=== PATIENT | male | born 1945 | race Caucasian/White ===

== ENCOUNTER 2019-02-05 00:22 | Observation (INO) ==
[2019-02-05] MEDS ORDERED: Ipratropium/Albuterol Neb 3 ML IH ONE (01:36)
[2019-02-05 01:44] LABS: Basophils # 0.1 K/mcL (0.0-0.2); Basophils % 0.6 %; Eosinophils # 0.3 K/mcL (0.0-0.6); Eosinophils % 2.4 %; Hematocrit 47.7 % (37.5-50.1); Hemoglobin 15.1 g/dL (12.9-16.9); Immature Granulocytes % 0.3 % (0-4); Lymphocytes # 2.4 K/mcL (0.6-4.6); Mean Corpuscular HGB Conc 31.7 g/dL (31.6-35.5); Mean Corpuscular Hemoglobin 28.8 pg (28.0-33.3); Mean Corpuscular Volume 90.9 fL (83.0-100.0); Mean Platelet Volume 10.2 fL (9.4-12.4); Monocytes # 0.9 K/mcL (0.0-1.3); Monocytes % 8.3 %; Neutrophils # 6.9 K/mcL (1.6-8.9); Platelet Count 220 K/mcL (140-400); Red Blood Count 5.25 M/mcL (4.19-5.50); Red Cell Distribution Width 14.8 % (11.5-14.5); Segmented Neutrophils % 65.4 %; White Blood Count 10.6 K/mcL (4.3-11.1)
[2019-02-05 01:51] LABS: Prothrombin Time 10.9 Seconds (9.4-12.1)
[2019-02-05 01:54] LABS: Activated Partial Thrombo Time 30.8 Seconds (26.0-36.0)
[2019-02-05 01:57] LABS: ABG Base Excess 5 mEq/L (-2 to 3); ABG HCO3 33 mEq/L (21-27); ABG Oxygen Saturation 93 % (95-98); ABG PCO2 59 mmHg (35-45); ABG PH 7.36 pH Units (7.32-7.45); ABG PO2 73 mmHg (85-104); ABG TCO2 35 mEq/L (20-26)
[2019-02-05 02:06] LABS: BUN/Creatinine Ratio 36 (6-26); Blood Urea Nitrogen 37 mg/dL (8-23); Calcium 8.9 mg/dL (8.6-10.3); Carbon Dioxide 33 mEq/L (23-29); Chloride 106 mEq/L (98-107); Glucose 84 mg/dL (70-105); Osmolality,Calculated 306 (280-300); Potassium 4.6 mEq/L (3.5-5.1); Sodium 144 mEq/L (136-145); eGFR For African Americans > 60 (> 60); eGFR For Non-African Americans > 60 (> 60)
[2019-02-05 02:08] LABS: Alanine Aminotransferase 16 Units/L (7-52); Albumin 3.7 g/dL (3.5-5.7); Albumin/Globulin Ratio 1.5 (1.1-2.2); Alkaline Phosphatase 47 Units/L (34-104); Aspartate Amino Transferase 14 Units/L (13-39); Bilirubin,Direct 0.2 mg/dL (0.0-0.2); Bilirubin,Indirect 0.6 mg/dL (0.0-1.0); Bilirubin,Total 0.8 mg/dL (0.3-1.0); Globulin 2.5 g/dL (2.4-3.5); Total Protein 6.2 g/dL (6.4-8.9)
[2019-02-05 02:10] LABS: Troponin I < 0.03 ng/mL (< 0.04)
[2019-02-05 02:53] LABS: Bilirubin,Urine Small (Negative); Blood,Urine Negative (Negative); Clarity,Urine Cloudy (Clear); Color,Urine Dark Yellow (Yellow); Glucose,Urine (UA) Normal (Normal); Ketones,Urine Negative (Negative); Leukocyte Esterase,Urine Negative (Negative); Nitrite,Urine Negative (Negative); PH,Urine 5.5 pH Units (5.0-8.0); Protein,Urine Negative (Neg-Trace); Urobilinogen,Urine Normal (Normal)
[2019-02-05 02:55] LABS: Bacteria,Urine None Seen per hpf (None-Few); Hyaline Casts,Urine None Seen per lpf (None-Few); Squamous Epithelial Cell,Urine Many per lpf (None-Few); WBC,Urine 0-3 per hpf (0-3)
[2019-02-05] MEDS ORDERED: Naloxone 0.4 MG/ML INJ IVP PRN (05:00)
[2019-02-05] MEDS ORDERED: Isovue-370 500 ML BOTTLE IVP ONE (05:09)
[2019-02-05 06:10] LABS: Basophils # 0.1 K/mcL (0.0-0.2); Basophils % 0.5 %; Eosinophils # 0.2 K/mcL (0.0-0.6); Eosinophils % 2.1 %; Hematocrit 45.6 % (37.5-50.1); Hemoglobin 14.6 g/dL (12.9-16.9); Immature Granulocytes % 0.3 % (0-4); Lymphocytes # 1.9 K/mcL (0.6-4.6); Lymphocytes % 18.6 %; Mean Corpuscular Hemoglobin 28.5 pg (28.0-33.3); Mean Corpuscular Volume 88.9 fL (83.0-100.0); Mean Platelet Volume 10.1 fL (9.4-12.4); Monocytes # 0.7 K/mcL (0.0-1.3); Monocytes % 6.6 %; Neutrophils # 7.5 K/mcL (1.6-8.9); Platelet Count 206 K/mcL (140-400); Red Blood Count 5.13 M/mcL (4.19-5.50); Red Cell Distribution Width 14.6 % (11.5-14.5); Segmented Neutrophils % 71.9 %; White Blood Count 10.4 K/mcL (4.3-11.1)
[2019-02-05 06:18] LABS: Prothrombin Time 11.4 Seconds (9.4-12.1)
[2019-02-05 06:32] LABS: Chol/HDL Ratio 3.5 (0-4.9); Phosphorous 2.7 mg/dL (2.7-4.5)
[2019-02-05 06:33] LABS: BUN/Creatinine Ratio 41 (6-26); Blood Urea Nitrogen 38 mg/dL (8-23); Calcium 8.7 mg/dL (8.6-10.3); Carbon Dioxide 30 mEq/L (23-29); Chloride 105 mEq/L (98-107); Glucose 104 mg/dL (70-105); Osmolality,Calculated 305 (280-300); Potassium 4.1 mEq/L (3.5-5.1); Sodium 143 mEq/L (136-145); eGFR For African Americans > 60 (> 60); eGFR For Non-African Americans > 60 (> 60)
[2019-02-05 08:52] LABS: Estimated Average Glucose 154 mg/dl
[2019-02-05] MEDS ORDERED: Perflutren Lipid Microsphere 1.3 ML in 0.9 % Sodium Chloride 8.7 ML IVP ONE (09:29)
[2019-02-05] MEDS ORDERED: Ipratropium/Albuterol Neb 3 ML ONE (11:06)
[2019-02-05] MEDS: Ipratropium/Albuterol Neb 3 ML IH SCH ×2 (11:08→15:22)
[2019-02-05] MEDS ORDERED: tiZANidine 4 MG TABLET PO PRN (12:46)
[2019-02-05] MEDS ORDERED: Budesonide Neb 0.5 MG/2 ML IH SCH (13:00)
[2019-02-05] MEDS ORDERED: Aspirin Enteric Coated 81 MG Tablet PO SCH (13:00)
[2019-02-05 15:32] VITALS: BP 111/72
[2019-02-05] MEDS ORDERED: FLU Vac QV 19-20 (6Month+)/PF 0.5 ML SYRINGE IM ONE (16:16)
[2019-02-05] MEDS ORDERED: Furosemide 20 MG TABLET PO SCH (17:00)
[2019-02-06] MEDS ORDERED: amLODIPine 5 MG TABLET PO SCH (09:00)
[2019-02-06] MEDS ORDERED: Lisinopril 20 MG TABLET PO SCH (09:00)
== END 2019-02-05 17:19 | disposition home health service (06) ==
LOC: EMEROOARM 00:22 → 2ANU 00:22 → SUATTDRO 04:35 → 2ANU 05:25
PROVIDERS: ADMIT Internal Medicine; ATTEND Family Medicine

== ENCOUNTER 2019-04-05 22:11 | Inpatient (IN) ==
[2019-04-05] MEDS ORDERED: Albuterol 2.5 MG/3 ML NEBULIZER IH STA (23:15)
[2019-04-05] MEDS ORDERED: Ipratropium/Albuterol Neb 3 ML IH STA (23:15)
[2019-04-05] MEDS ORDERED: predniSONE 20 MG TABLET PO STA (23:16)
[2019-04-05 23:20] LABS: Basophils # 0.1 K/mcL (0.0-0.2); Basophils % 0.6 %; Eosinophils # 0.3 K/mcL (0.0-0.6); Eosinophils % 3.2 %; Hematocrit 45.9 % (37.5-50.1); Hemoglobin 14.2 g/dL (12.9-16.9); Immature Granulocytes % 0.1 % (0-4); Lymphocytes # 2.6 K/mcL (0.6-4.6); Lymphocytes % 26.9 %; Mean Corpuscular HGB Conc 30.9 g/dL (31.6-35.5); Mean Corpuscular Volume 93.9 fL (83.0-100.0); Mean Platelet Volume 11.1 fL (9.4-12.4); Monocytes # 1.1 K/mcL (0.0-1.3); Monocytes % 11.6 %; Neutrophils # 5.5 K/mcL (1.6-8.9); Platelet Count 193 K/mcL (140-400); Red Blood Count 4.89 M/mcL (4.19-5.50); Red Cell Distribution Width 14.8 % (11.5-14.5); Segmented Neutrophils % 57.6 %; White Blood Count 9.5 K/mcL (4.3-11.1)
[2019-04-05 23:21] LABS: BUN/Creatinine Ratio 19 (6-26); Blood Urea Nitrogen 24 mg/dL (8-23); Calcium 9.1 mg/dL (8.6-10.3); Carbon Dioxide 31 mEq/L (23-29); Chloride 106 mEq/L (98-107); Glucose 83 mg/dL (70-105); Osmolality,Calculated 301 (280-300); Potassium 4.1 mEq/L (3.5-5.1); Sodium 144 mEq/L (136-145); eGFR For African Americans > 60 (> 60); eGFR For Non-African Americans 56 (> 60)
[2019-04-05 23:22] LABS: Troponin I < 0.03 ng/mL (< 0.04)
[2019-04-05] MEDS ORDERED: Aspirin 81 MG TAB.CHEW PO STA (23:27)
[2019-04-05 23:51] LABS: Thyroid Stimulating Hormone 3.237 mcIU/mL (0.340-5.600)
[2019-04-06 00:10] LABS: Bilirubin,Urine Small (Negative); Blood,Urine Negative (Negative); Clarity,Urine Cloudy (Clear); Color,Urine Dark Yellow (Yellow); Glucose,Urine (UA) Normal (Normal); Ketones,Urine Negative (Negative); Leukocyte Esterase,Urine Negative (Negative); Nitrite,Urine Negative (Negative); PH,Urine 5.5 pH Units (5.0-8.0); Protein,Urine 30 mg/dL (Neg-Trace); Specific Gravity,Urine 1.027 (1.010-1.025); Urobilinogen,Urine Normal (Normal)
[2019-04-06 00:19] LABS: Bacteria,Urine None Seen per hpf (None-Few); RBC,Urine 0-3 per hpf (0-3); Squamous Epithelial Cell,Urine Many per lpf (None-Few)
[2019-04-06 00:36] LABS: Hyaline Casts,Urine Few per lpf (None-Few); Mucus,Urine Few per lpf (Few)
[2019-04-06] MEDS ORDERED: cefTRIAXone 1,000 MG in 0.9 % Sodium Chloride Mini Bag 100 ML IVPB ONE (00:39)
[2019-04-06] MEDS ORDERED: Azithromycin 500 MG in 0.9 % Sodium Chloride 250 ML IVPB ONE (00:39)
[2019-04-06] MEDS ORDERED: Acetaminophen 325 MG TABLET PO PRN (01:40)
[2019-04-06] MEDS ORDERED: Naloxone 0.4 MG/ML INJ IVP PRN (01:40)
[2019-04-06] MEDS ORDERED: Ondansetron 4 MG/2 ML VIAL IVP PRN (01:40)
[2019-04-06] MEDS ORDERED: Ipratropium/Albuterol Neb 3 ML IH PRN (01:42)
[2019-04-06] MEDS ORDERED: Furosemide 40 MG/4 ML VIAL IVP ONE (03:51)
[2019-04-06] MEDS: Budesonide Neb 0.5 MG/2 ML IH SCH ×3 (03:57→19:46)
[2019-04-06] MEDS ORDERED: levoFLOXacin 500 MG/100 ML 500 MG/100 ML BAG IVPB SCH (04:00)
[2019-04-06 05:49] LABS: Basophils # 0.1 K/mcL (0.0-0.2); Basophils % 0.5 %; Eosinophils # 0.2 K/mcL (0.0-0.6); Eosinophils % 2.2 %; Hematocrit 42.3 % (37.5-50.1); Hemoglobin 13.1 g/dL (12.9-16.9); Immature Granulocytes % 0.2 % (0-4); Lymphocytes # 2.4 K/mcL (0.6-4.6); Mean Corpuscular Hemoglobin 28.8 pg (28.0-33.3); Mean Platelet Volume 10.9 fL (9.4-12.4); Monocytes % 9.9 %; Neutrophils # 6.7 K/mcL (1.6-8.9); Platelet Count 175 K/mcL (140-400); Red Blood Count 4.55 M/mcL (4.19-5.50); Red Cell Distribution Width 14.8 % (11.5-14.5); Segmented Neutrophils % 64.2 %; White Blood Count 10.4 K/mcL (4.3-11.1)
[2019-04-06 06:05] LABS: Adenovirus Not Detected (Not Detect); Bordetella Pertussis Not Detected (Not Detect); Chlamydophila pneumoniae Not Detected (Not Detect); Coronavirus 229E Not Detected (Not Detect); Coronavirus HKU1 Not Detected (Not Detect); Coronavirus NL63 Not Detected (Not Detect); Coronavirus OC43 Not Detected (Not Detect); Human Metapneumovirus Not Detected (Not Detect); Human Rhinovirus/Enterovirus Not Detected (Not Detect); Influenza A Subtype 2009 H1 Not Detected (Not Detect); Influenza B Not Detected (Not Detect); Mycoplasma pneumoniae Not Detected (Not Detect); Parainfluenza Virus 1 Not Detected (Not Detect); Parainfluenza Virus 2 Not Detected (Not Detect); Parainfluenza Virus 3 Not Detected (Not Detect); Parainfluenza Virus 4 Not Detected (Not Detect); Respiratory Syncytial Virus Not Detected (Not Detect)
[2019-04-06 06:06] LABS: BUN/Creatinine Ratio 20 (6-26); Blood Urea Nitrogen 24 mg/dL (8-23); Calcium 8.4 mg/dL (8.6-10.3); Carbon Dioxide 31 mEq/L (23-29); Chloride 105 mEq/L (98-107); Glucose 119 mg/dL (70-105); Osmolality,Calculated 305 (280-300); Potassium 3.6 mEq/L (3.5-5.1); Sodium 145 mEq/L (136-145); eGFR For African Americans > 60 (> 60); eGFR For Non-African Americans > 60 (> 60)
[2019-04-06] MEDS: *HR* Heparin 5,000 UNIT/ML VIAL SQ SCH ×4 (06:18→20:55)
[2019-04-06] MEDS: Ipratropium/Albuterol Neb 3 ML IH SCH ×5 (08:17→23:32)
[2019-04-06] MEDS: Aspirin Enteric Coated 81 MG Tablet PO SCH (08:30)
[2019-04-06] MEDS: Lisinopril 20 MG TABLET PO SCH (08:31)
[2019-04-06] MEDS: amLODIPine 5 MG TABLET PO SCH (08:31)
[2019-04-06] MEDS: Nicotine 14 MG PATCH.TD24 TD SCH (08:31)
[2019-04-06] MEDS: Furosemide 20 MG TABLET PO SCH (08:31)
[2019-04-06] MEDS: *HR* LORazepam 2 MG/ML VIAL IVP PRN (11:39)
[2019-04-06] MEDS: dexAMETHasone 4 MG TABLET PO SCH (16:20)
[2019-04-06] MEDS: QUEtiapine Fumarate 25 MG TABLET PO SCH ×2 (20:36→22:07)
[2019-04-06] MEDS ORDERED: QUEtiapine Fumarate 25 MG TABLET PO SCH (21:00)
[2019-04-07] MEDS ORDERED: Haloperidol Lactate 5 MG/ML VIAL IVP ONE (00:44)
[2019-04-07] MEDS: Ipratropium/Albuterol Neb 3 ML IH SCH ×7 (01:14→22:52)
[2019-04-07 05:30] LABS: Basophils % 0.2 %; Hematocrit 47.2 % (37.5-50.1); Hemoglobin 14.7 g/dL (12.9-16.9); Immature Granulocytes % 0.2 % (0-4); Lymphocytes # 1.2 K/mcL (0.6-4.6); Mean Corpuscular HGB Conc 31.1 g/dL (31.6-35.5); Mean Corpuscular Volume 93.1 fL (83.0-100.0); Mean Platelet Volume 10.9 fL (9.4-12.4); Monocytes # 0.8 K/mcL (0.0-1.3); Monocytes % 8.1 %; Neutrophils # 7.7 K/mcL (1.6-8.9); Platelet Count 206 K/mcL (140-400); Red Blood Count 5.07 M/mcL (4.19-5.50); Red Cell Distribution Width 14.8 % (11.5-14.5); Segmented Neutrophils % 79.5 %; White Blood Count 9.7 K/mcL (4.3-11.1)
[2019-04-07 05:52] LABS: BUN/Creatinine Ratio 19 (6-26); Blood Urea Nitrogen 25 mg/dL (8-23); Calcium 9.5 mg/dL (8.6-10.3); Carbon Dioxide 28 mEq/L (23-29); Chloride 103 mEq/L (98-107); Glucose 120 mg/dL (70-105); Magnesium 2.2 mg/dL (1.6-2.6); Osmolality,Calculated 308 (280-300); Potassium 4.3 mEq/L (3.5-5.1); Sodium 146 mEq/L (136-145); eGFR For African Americans > 60 (> 60); eGFR For Non-African Americans 54 (> 60)
[2019-04-07] MEDS: *HR* Heparin 5,000 UNIT/ML VIAL SQ SCH ×3 (05:54→20:57)
[2019-04-07] MEDS: dexAMETHasone 4 MG TABLET PO SCH ×2 (07:25→16:48)
[2019-04-07] MEDS: Aspirin Enteric Coated 81 MG Tablet PO SCH (07:25)
[2019-04-07] MEDS: Furosemide 20 MG TABLET PO SCH (07:25)
[2019-04-07] MEDS: levoFLOXacin 500 MG TABLET PO SCH (07:25)
[2019-04-07] MEDS: amLODIPine 5 MG TABLET PO SCH (07:25)
[2019-04-07] MEDS: *HR* LORazepam 2 MG/ML VIAL IVP PRN (07:25)
[2019-04-07] MEDS: Lisinopril 20 MG TABLET PO SCH (07:26)
[2019-04-07] MEDS: Nicotine 14 MG PATCH.TD24 TD SCH (07:26)
[2019-04-07] MEDS: Budesonide Neb 0.5 MG/2 ML IH SCH ×2 (07:27→19:49)
[2019-04-07 08:05] LABS: ABG Base Excess 4 mEq/L (-2 to 3); ABG HCO3 33 mEq/L (21-27); ABG Oxygen Saturation 90 % (95-98); ABG PCO2 65 mmHg (35-45); ABG PH 7.31 pH Units (7.32-7.45); ABG PO2 67 mmHg (85-104); ABG TCO2 35 mEq/L (20-26)
[2019-04-07] MEDS ORDERED: QUEtiapine Fumarate 25 MG TABLET PO SCH (08:38)
[2019-04-07] MEDS ORDERED: Ziprasidone 10 MG in Water for inj. (sterile) 0.5 ML IM ONE (08:59)
[2019-04-07] MEDS: QUEtiapine Fumarate 25 MG TABLET PO SCH (20:57)
[2019-04-07] MEDS ORDERED: *HR* LORazepam 2 MG/ML VIAL IVP ONE (22:17)
[2019-04-08 04:00] LABS: Basophils % 0.1 %; Hematocrit 44.3 % (37.5-50.1); Hemoglobin 13.9 g/dL (12.9-16.9); Immature Granulocytes % 0.2 % (0-4); Mean Corpuscular HGB Conc 31.4 g/dL (31.6-35.5); Mean Corpuscular Hemoglobin 28.4 pg (28.0-33.3); Mean Corpuscular Volume 90.4 fL (83.0-100.0); Mean Platelet Volume 10.9 fL (9.4-12.4); Monocytes # 0.7 K/mcL (0.0-1.3); Monocytes % 5.6 %; Neutrophils # 10.5 K/mcL (1.6-8.9); Platelet Count 187 K/mcL (140-400); Segmented Neutrophils % 86.1 %; White Blood Count 12.2 K/mcL (4.3-11.1)
[2019-04-08] MEDS: Ipratropium/Albuterol Neb 3 ML IH SCH (04:01)
[2019-04-08 04:19] LABS: BUN/Creatinine Ratio 27 (6-26); Blood Urea Nitrogen 32 mg/dL (8-23); Calcium 9.2 mg/dL (8.6-10.3); Carbon Dioxide 31 mEq/L (23-29); Chloride 106 mEq/L (98-107); Glucose 135 mg/dL (70-105); Magnesium 2.4 mg/dL (1.6-2.6); Osmolality,Calculated 307 (280-300); Potassium 4.6 mEq/L (3.5-5.1); Sodium 144 mEq/L (136-145); eGFR For African Americans > 60 (> 60); eGFR For Non-African Americans 59 (> 60)
[2019-04-08] MEDS: *HR* Heparin 5,000 UNIT/ML VIAL SQ SCH ×3 (05:22→19:41)
[2019-04-08] MEDS ORDERED: Levalbuterol Neb 1.25 MG/3 ML ONE (05:34)
[2019-04-08 05:44] LABS: ABG Base Excess 6 mEq/L (-2 to 3); ABG HCO3 32 mEq/L (21-27); ABG Oxygen Saturation 95 % (95-98); ABG PCO2 54 mmHg (35-45); ABG PH 7.39 pH Units (7.32-7.45); ABG PO2 81 mmHg (85-104); ABG TCO2 34 mEq/L (20-26)
[2019-04-08] MEDS: Levalbuterol Neb 1.25 MG/3 ML IH SCH ×6 (05:51→23:36)
[2019-04-08] MEDS: Budesonide Neb 0.5 MG/2 ML IH SCH ×2 (07:26→19:41)
[2019-04-08] MEDS: amLODIPine 5 MG TABLET PO SCH (08:42)
[2019-04-08] MEDS: Furosemide 20 MG TABLET PO SCH (08:42)
[2019-04-08] MEDS: Lisinopril 20 MG TABLET PO SCH (08:42)
[2019-04-08] MEDS: dexAMETHasone 4 MG TABLET PO SCH ×2 (08:42→17:46)
[2019-04-08] MEDS: levoFLOXacin 500 MG TABLET PO SCH (08:42)
[2019-04-08] MEDS: Nicotine 14 MG PATCH.TD24 TD SCH (08:42)
[2019-04-08] MEDS: Aspirin Enteric Coated 81 MG Tablet PO SCH (08:42)
[2019-04-08] MEDS ORDERED: tiZANidine 4 MG TABLET PO PRN (10:18)
[2019-04-08] MEDS: QUEtiapine Fumarate 25 MG TABLET PO SCH (19:40)
[2019-04-09 01:27] LABS: Basophils % 0.1 %; Hematocrit 43.6 % (37.5-50.1); Hemoglobin 13.8 g/dL (12.9-16.9); Immature Granulocytes % 0.4 % (0-4); Lymphocytes # 0.9 K/mcL (0.6-4.6); Lymphocytes % 7.8 %; Mean Corpuscular HGB Conc 31.7 g/dL (31.6-35.5); Mean Corpuscular Hemoglobin 28.8 pg (28.0-33.3); Mean Corpuscular Volume 90.8 fL (83.0-100.0); Monocytes # 0.6 K/mcL (0.0-1.3); Monocytes % 4.9 %; Neutrophils # 10.4 K/mcL (1.6-8.9); Platelet Count 194 K/mcL (140-400); Segmented Neutrophils % 86.8 %
[2019-04-09 01:42] LABS: BUN/Creatinine Ratio 34 (6-26); Blood Urea Nitrogen 46 mg/dL (8-23); Calcium 9.3 mg/dL (8.6-10.3); Carbon Dioxide 30 mEq/L (23-29); Chloride 106 mEq/L (98-107); Glucose 125 mg/dL (70-105); Osmolality,Calculated 303 (280-300); Potassium 4.7 mEq/L (3.5-5.1); Sodium 140 mEq/L (136-145); eGFR For African Americans > 60 (> 60); eGFR For Non-African Americans 51 (> 60)
[2019-04-09] MEDS ORDERED: Haloperidol Lactate 5 MG/ML VIAL IVP ONE (03:33)
[2019-04-09] MEDS ORDERED: *HR* Promethazine 25 MG/ML VIAL IVP PRN (03:37)
[2019-04-09] MEDS ORDERED: Haloperidol Lactate 5 MG/ML VIAL IM STA (03:43)
[2019-04-09] MEDS ORDERED: Haloperidol Lactate 5 MG/ML VIAL IVP STA (03:47)
[2019-04-09] MEDS ORDERED: *HR* Promethazine 25 MG/ML VIAL IVP ONE (03:50)
[2019-04-09] MEDS ORDERED: Ziprasidone 10 MG in Water for inj. (sterile) 0.5 ML IM ONE (04:14)
[2019-04-09 04:20] LABS: ABG Base Excess 3 mEq/L (-2 to 3); ABG HCO3 32 mEq/L (21-27); ABG Oxygen Saturation 93 % (95-98); ABG PCO2 68 mmHg (35-45); ABG PH 7.28 pH Units (7.32-7.45); ABG PO2 77 mmHg (85-104); ABG TCO2 34 mEq/L (20-26); Blood Gas Modality NIV
[2019-04-09] MEDS: Levalbuterol Neb 1.25 MG/3 ML IH SCH ×2 (04:49→07:45)
[2019-04-09] MEDS: *HR* Heparin 5,000 UNIT/ML VIAL SQ SCH ×3 (06:13→20:44)
[2019-04-09] MEDS: Budesonide Neb 0.5 MG/2 ML IH SCH ×2 (07:45→20:19)
[2019-04-09] MEDS ORDERED: levoFLOXacin 750 MG TABLET PO SCH (09:00)
[2019-04-09] MEDS: Ipratropium/Albuterol Neb 3 ML IH SCH ×4 (11:02→23:17)
[2019-04-09 11:09] LABS: VBG HCO3 31 mEq/L (21-27); VBG PCO2 58 mmHg (41-51); VBG PH 7.34 pH Units (7.32-7.42); VBG PO2 164 mmHg (25-50)
[2019-04-09] MEDS: Aspirin Enteric Coated 81 MG Tablet PO SCH (11:09)
[2019-04-09] MEDS: Furosemide 20 MG TABLET PO SCH (11:09)
[2019-04-09] MEDS: amLODIPine 5 MG TABLET PO SCH (11:09)
[2019-04-09] MEDS: Lisinopril 20 MG TABLET PO SCH (11:09)
[2019-04-09] MEDS: Nicotine 14 MG PATCH.TD24 TD SCH (11:10)
[2019-04-09] MEDS: levoFLOXacin 750 MG/150 ML 750 MG/150 ML BAG IVPB SCH (11:10)
[2019-04-09] MEDS: MethylPREDNISolone 40 MG/ML VIAL IVP SCH ×2 (11:20→17:24)
[2019-04-09] MEDS ORDERED: QUEtiapine Fumarate 25 MG TABLET PO SCH (21:00)
[2019-04-10] MEDS: Dexmedetomidine HCl 400 MCG/100 ML MLS IVC SCH ×3 (02:18→14:18)
[2019-04-10] MEDS ORDERED: Haloperidol Lactate 5 MG/ML VIAL IVP ONE ×2 (03:06→04:18)
[2019-04-10] MEDS: Ipratropium/Albuterol Neb 3 ML IH SCH ×7 (03:54→23:20)
[2019-04-10] MEDS: *HR* Heparin 5,000 UNIT/ML VIAL SQ SCH ×3 (05:26→20:28)
[2019-04-10] MEDS: MethylPREDNISolone 40 MG/ML VIAL IVP SCH ×2 (05:28→18:26)
[2019-04-10 06:54] LABS: Hematocrit 43.6 % (37.5-50.1); Hemoglobin 13.5 g/dL (12.9-16.9); Immature Granulocytes % 0.5 % (0-4); Lymphocytes # 0.9 K/mcL (0.6-4.6); Lymphocytes % 8.5 %; Mean Corpuscular Hemoglobin 28.3 pg (28.0-33.3); Mean Corpuscular Volume 91.4 fL (83.0-100.0); Mean Platelet Volume 11.3 fL (9.4-12.4); Monocytes # 0.9 K/mcL (0.0-1.3); Monocytes % 8.4 %; Neutrophils # 8.8 K/mcL (1.6-8.9); Platelet Count 176 K/mcL (140-400); Red Blood Count 4.77 M/mcL (4.19-5.50); Red Cell Distribution Width 14.6 % (11.5-14.5); Segmented Neutrophils % 82.6 %; White Blood Count 10.7 K/mcL (4.3-11.1)
[2019-04-10 07:12] LABS: BUN/Creatinine Ratio 38 (6-26); Blood Urea Nitrogen 46 mg/dL (8-23); Carbon Dioxide 31 mEq/L (23-29); Chloride 103 mEq/L (98-107); Glucose 160 mg/dL (70-105); Osmolality,Calculated 309 (280-300); Potassium 4.4 mEq/L (3.5-5.1); Sodium 142 mEq/L (136-145); eGFR For African Americans > 60 (> 60); eGFR For Non-African Americans 58 (> 60)
[2019-04-10] MEDS: Budesonide Neb 0.5 MG/2 ML IH SCH ×2 (07:33→19:52)
[2019-04-10] MEDS: Nicotine 14 MG PATCH.TD24 TD SCH (13:49)
[2019-04-10] MEDS: Aspirin Enteric Coated 81 MG Tablet PO SCH (13:49)
[2019-04-10] MEDS: Furosemide 20 MG TABLET PO SCH (13:49)
[2019-04-10] MEDS: Lisinopril 20 MG TABLET PO SCH (13:50)
[2019-04-10] MEDS: amLODIPine 5 MG TABLET PO SCH (13:50)
[2019-04-10] MEDS ORDERED: Ziprasidone 10 MG in Water for inj. (sterile) 0.5 ML IM ONE (20:31)
[2019-04-10] MEDS ORDERED: QUEtiapine Fumarate 25 MG TABLET PO SCH (21:00)
[2019-04-11 01:51] LABS: Basophils % 0.1 %; Hematocrit 44.4 % (37.5-50.1); Hemoglobin 14.1 g/dL (12.9-16.9); Immature Granulocytes % 0.5 % (0-4); Lymphocytes # 0.7 K/mcL (0.6-4.6); Lymphocytes % 6.1 %; Mean Corpuscular HGB Conc 31.8 g/dL (31.6-35.5); Mean Corpuscular Volume 91.2 fL (83.0-100.0); Mean Platelet Volume 10.9 fL (9.4-12.4); Monocytes # 0.7 K/mcL (0.0-1.3); Monocytes % 6.5 %; Neutrophils # 9.6 K/mcL (1.6-8.9); Platelet Count 175 K/mcL (140-400); Red Blood Count 4.87 M/mcL (4.19-5.50); Segmented Neutrophils % 86.8 %
[2019-04-11 02:10] LABS: BUN/Creatinine Ratio 37 (6-26); Blood Urea Nitrogen 36 mg/dL (8-23); Carbon Dioxide 29 mEq/L (23-29); Chloride 103 mEq/L (98-107); Glucose 139 mg/dL (70-105); Osmolality,Calculated 297 (280-300); Potassium 4.4 mEq/L (3.5-5.1); Sodium 138 mEq/L (136-145); eGFR For African Americans > 60 (> 60); eGFR For Non-African Americans > 60 (> 60)
[2019-04-11] MEDS: Ipratropium/Albuterol Neb 3 ML IH SCH ×5 (04:04→19:58)
[2019-04-11] MEDS: Dexmedetomidine HCl 400 MCG/100 ML MLS IVC SCH ×2 (04:19→10:42)
[2019-04-11] MEDS: MethylPREDNISolone 40 MG/ML VIAL IVP SCH ×2 (04:59→17:10)
[2019-04-11] MEDS: *HR* Heparin 5,000 UNIT/ML VIAL SQ SCH ×3 (04:59→20:20)
[2019-04-11] MEDS: Budesonide Neb 0.5 MG/2 ML IH SCH ×2 (07:33→19:58)
[2019-04-11] MEDS: Nicotine 14 MG PATCH.TD24 TD SCH (08:22)
[2019-04-11] MEDS: amLODIPine 5 MG TABLET PO SCH (08:39)
[2019-04-11] MEDS: Furosemide 20 MG TABLET PO SCH (08:40)
[2019-04-11] MEDS: levoFLOXacin 750 MG/150 ML 750 MG/150 ML BAG IVPB SCH (08:40)
[2019-04-11] MEDS: Aspirin Enteric Coated 81 MG Tablet PO SCH (08:40)
[2019-04-11] MEDS: Lisinopril 20 MG TABLET PO SCH (08:40)
[2019-04-11] MEDS: QUEtiapine Fumarate 100 MG TABLET PO SCH (20:18)
[2019-04-12] MEDS: Ipratropium/Albuterol Neb 3 ML IH SCH ×7 (00:36→23:30)
[2019-04-12 04:43] LABS: Basophils % 0.1 %; Hematocrit 47.9 % (37.5-50.1); Hemoglobin 14.9 g/dL (12.9-16.9); Immature Granulocytes % 0.4 % (0-4); Lymphocytes # 1.1 K/mcL (0.6-4.6); Lymphocytes % 8.1 %; Mean Corpuscular HGB Conc 31.1 g/dL (31.6-35.5); Mean Corpuscular Hemoglobin 28.7 pg (28.0-33.3); Mean Corpuscular Volume 92.3 fL (83.0-100.0); Monocytes # 1.1 K/mcL (0.0-1.3); Monocytes % 8.1 %; Neutrophils # 11.7 K/mcL (1.6-8.9); Platelet Count 191 K/mcL (140-400); Red Blood Count 5.19 M/mcL (4.19-5.50); Red Cell Distribution Width 14.4 % (11.5-14.5); Segmented Neutrophils % 83.3 %
[2019-04-12] MEDS: MethylPREDNISolone 40 MG/ML VIAL IVP SCH ×2 (05:03→17:33)
[2019-04-12] MEDS: *HR* Heparin 5,000 UNIT/ML VIAL SQ SCH ×3 (05:04→20:09)
[2019-04-12 05:05] LABS: BUN/Creatinine Ratio 32 (6-26); Blood Urea Nitrogen 40 mg/dL (8-23); Carbon Dioxide 34 mEq/L (23-29); Chloride 100 mEq/L (98-107); Glucose 98 mg/dL (70-105); Osmolality,Calculated 296 (280-300); Potassium 4.5 mEq/L (3.5-5.1); Sodium 138 mEq/L (136-145); eGFR For African Americans > 60 (> 60); eGFR For Non-African Americans 56 (> 60)
[2019-04-12] MEDS: Budesonide Neb 0.5 MG/2 ML IH SCH ×2 (07:33→20:18)
[2019-04-12] MEDS ORDERED: levoFLOXacin 750 MG/150 ML 750 MG/150 ML BAG IVPB SCH (09:00)
[2019-04-12] MEDS: Aspirin Enteric Coated 81 MG Tablet PO SCH (09:08)
[2019-04-12] MEDS: amLODIPine 5 MG TABLET PO SCH (09:08)
[2019-04-12] MEDS: Furosemide 20 MG TABLET PO SCH (09:08)
[2019-04-12] MEDS: Lisinopril 20 MG TABLET PO SCH (09:08)
[2019-04-12] MEDS: Nicotine 14 MG PATCH.TD24 TD SCH (09:08)
[2019-04-12] MEDS: QUEtiapine Fumarate 100 MG TABLET PO SCH (20:09)
[2019-04-13 01:53] LABS: Basophils % 0.1 %; Hematocrit 44.8 % (37.5-50.1); Hemoglobin 14.6 g/dL (12.9-16.9); Immature Granulocytes % 0.7 % (0-4); Lymphocytes % 6.6 %; Mean Corpuscular HGB Conc 32.6 g/dL (31.6-35.5); Mean Corpuscular Hemoglobin 28.5 pg (28.0-33.3); Mean Corpuscular Volume 87.3 fL (83.0-100.0); Mean Platelet Volume 10.9 fL (9.4-12.4); Monocytes # 0.9 K/mcL (0.0-1.3); Monocytes % 6.2 %; Neutrophils # 12.8 K/mcL (1.6-8.9); Platelet Count 190 K/mcL (140-400); Red Blood Count 5.13 M/mcL (4.19-5.50); Red Cell Distribution Width 14.5 % (11.5-14.5); Segmented Neutrophils % 86.4 %; White Blood Count 14.8 K/mcL (4.3-11.1)
[2019-04-13 02:01] LABS: VBG HCO3 30 mEq/L (21-27); VBG PCO2 51 mmHg (41-51); VBG PH 7.38 pH Units (7.32-7.42); VBG PO2 85 mmHg (25-50)
[2019-04-13 02:11] LABS: BUN/Creatinine Ratio 39 (6-26); Blood Urea Nitrogen 49 mg/dL (8-23); Calcium 8.8 mg/dL (8.6-10.3); Carbon Dioxide 28 mEq/L (23-29); Chloride 104 mEq/L (98-107); Glucose 127 mg/dL (70-105); Osmolality,Calculated 303 (280-300); Potassium 4.8 mEq/L (3.5-5.1); Sodium 139 mEq/L (136-145); eGFR For African Americans > 60 (> 60); eGFR For Non-African Americans 57 (> 60)
[2019-04-13] MEDS: Ipratropium/Albuterol Neb 3 ML IH SCH ×5 (03:30→19:34)
[2019-04-13] MEDS: MethylPREDNISolone 40 MG/ML VIAL IVP SCH (05:16)
[2019-04-13] MEDS: *HR* Heparin 5,000 UNIT/ML VIAL SQ SCH ×3 (05:16→20:53)
[2019-04-13] MEDS: Budesonide Neb 0.5 MG/2 ML IH SCH ×2 (07:21→19:34)
[2019-04-13] MEDS: amLODIPine 5 MG TABLET PO SCH (09:04)
[2019-04-13] MEDS: Nicotine 14 MG PATCH.TD24 TD SCH (09:04)
[2019-04-13] MEDS: Lisinopril 20 MG TABLET PO SCH (09:04)
[2019-04-13] MEDS: Aspirin Enteric Coated 81 MG Tablet PO SCH (09:04)
[2019-04-13] MEDS: Furosemide 20 MG TABLET PO SCH (09:04)
[2019-04-13] MEDS: QUEtiapine Fumarate 100 MG TABLET PO SCH (20:53)
[2019-04-14] MEDS: Ipratropium/Albuterol Neb 3 ML IH SCH ×7 (00:05→23:47)
[2019-04-14] MEDS: *HR* Heparin 5,000 UNIT/ML VIAL SQ SCH ×3 (04:51→21:51)
[2019-04-14 05:26] LABS: Hemoglobin 14.8 g/dL (12.9-16.9); Mean Corpuscular HGB Conc 32.2 g/dL (31.6-35.5); Mean Corpuscular Hemoglobin 29.2 pg (28.0-33.3); Mean Corpuscular Volume 90.9 fL (83.0-100.0); Mean Platelet Volume 11.4 fL (9.4-12.4); Platelet Count 188 K/mcL (140-400); Red Blood Count 5.06 M/mcL (4.19-5.50)
[2019-04-14 05:40] LABS: BUN/Creatinine Ratio 29 (6-26); Blood Urea Nitrogen 40 mg/dL (8-23); Calcium 8.5 mg/dL (8.6-10.3); Carbon Dioxide 36 mEq/L (23-29); Chloride 104 mEq/L (98-107); Glucose 95 mg/dL (70-105); Magnesium 2.4 mg/dL (1.6-2.6); Osmolality,Calculated 310 (280-300); Potassium 4.4 mEq/L (3.5-5.1); Sodium 145 mEq/L (136-145); eGFR For African Americans > 60 (> 60); eGFR For Non-African Americans 50 (> 60)
[2019-04-14] MEDS: Budesonide Neb 0.5 MG/2 ML IH SCH ×2 (07:19→20:09)
[2019-04-14] MEDS: predniSONE 20 MG TABLET PO SCH (09:12)
[2019-04-14] MEDS: Furosemide 20 MG TABLET PO SCH (09:12)
[2019-04-14] MEDS: Aspirin Enteric Coated 81 MG Tablet PO SCH (09:12)
[2019-04-14] MEDS: amLODIPine 5 MG TABLET PO SCH (09:12)
[2019-04-14] MEDS: Lisinopril 20 MG TABLET PO SCH (09:12)
[2019-04-14] MEDS: Nicotine 14 MG PATCH.TD24 TD SCH (09:13)
[2019-04-14] MEDS: QUEtiapine Fumarate 100 MG TABLET PO SCH (21:51)
[2019-04-15] MEDS: Ipratropium/Albuterol Neb 3 ML IH SCH ×4 (03:34→21:43)
[2019-04-15] MEDS: *HR* Heparin 5,000 UNIT/ML VIAL SQ SCH ×3 (06:09→22:08)
[2019-04-15 06:39] LABS: Hematocrit 45.3 % (37.5-50.1); Hemoglobin 14.6 g/dL (12.9-16.9); Mean Corpuscular HGB Conc 32.2 g/dL (31.6-35.5); Mean Corpuscular Hemoglobin 28.9 pg (28.0-33.3); Mean Corpuscular Volume 89.5 fL (83.0-100.0); Mean Platelet Volume 10.9 fL (9.4-12.4); Platelet Count 184 K/mcL (140-400); Red Blood Count 5.06 M/mcL (4.19-5.50); Red Cell Distribution Width 14.7 % (11.5-14.5); White Blood Count 17.2 K/mcL (4.3-11.1)
[2019-04-15 06:54] LABS: BUN/Creatinine Ratio 33 (6-26); Blood Urea Nitrogen 36 mg/dL (8-23); Calcium 8.3 mg/dL (8.6-10.3); Carbon Dioxide 35 mEq/L (23-29); Chloride 103 mEq/L (98-107); Glucose 121 mg/dL (70-105); Osmolality,Calculated 308 (280-300); Potassium 3.9 mEq/L (3.5-5.1); Sodium 144 mEq/L (136-145); eGFR For African Americans > 60 (> 60); eGFR For Non-African Americans > 60 (> 60)
[2019-04-15] MEDS: Budesonide Neb 0.5 MG/2 ML IH SCH ×2 (07:16→21:43)
[2019-04-15] MEDS ORDERED: Lisinopril 20 MG TABLET PO SCH (09:00)
[2019-04-15] MEDS: Aspirin Enteric Coated 81 MG Tablet PO SCH (09:21)
[2019-04-15] MEDS: Furosemide 20 MG TABLET PO SCH (09:21)
[2019-04-15] MEDS: Nicotine 14 MG PATCH.TD24 TD SCH (09:22)
[2019-04-15] MEDS: predniSONE 20 MG TABLET PO SCH (09:22)
[2019-04-15] MEDS: QUEtiapine Fumarate 100 MG TABLET PO SCH (22:06)
[2019-04-16] MEDS: Ipratropium/Albuterol Neb 3 ML IH SCH ×4 (03:58→22:02)
[2019-04-16] MEDS: *HR* Heparin 5,000 UNIT/ML VIAL SQ SCH ×3 (05:44→20:33)
[2019-04-16] MEDS: Furosemide 20 MG TABLET PO SCH (09:04)
[2019-04-16] MEDS: Nicotine 14 MG PATCH.TD24 TD SCH (09:05)
[2019-04-16] MEDS: Aspirin Enteric Coated 81 MG Tablet PO SCH (09:05)
[2019-04-16] MEDS: predniSONE 20 MG TABLET PO SCH (09:05)
[2019-04-16] MEDS: Budesonide Neb 0.5 MG/2 ML IH SCH ×2 (10:55→22:02)
[2019-04-16] MEDS: QUEtiapine Fumarate 100 MG TABLET PO SCH (20:33)
[2019-04-16] MEDS ORDERED: Simethicone 80 MG TAB.CHEW PO PRN (20:58)
[2019-04-17] MEDS: Ipratropium/Albuterol Neb 3 ML IH SCH ×2 (04:07→09:36)
[2019-04-17] MEDS: *HR* Heparin 5,000 UNIT/ML VIAL SQ SCH (07:01)
[2019-04-17 07:39] VITALS: BP 111/56
[2019-04-17] MEDS: Aspirin Enteric Coated 81 MG Tablet PO SCH (09:34)
[2019-04-17] MEDS: predniSONE 20 MG TABLET PO SCH (09:34)
[2019-04-17] MEDS: Budesonide Neb 0.5 MG/2 ML IH SCH (09:35)
[2019-04-17] MEDS: Furosemide 20 MG TABLET PO SCH (09:35)
[2019-04-17] MEDS: Nicotine 14 MG PATCH.TD24 TD SCH (09:37)
[2019-04-17 09:38] LABS: Hematocrit 44.8 % (37.5-50.1); Hemoglobin 14.6 g/dL (12.9-16.9); Mean Corpuscular HGB Conc 32.6 g/dL (31.6-35.5); Mean Corpuscular Hemoglobin 28.7 pg (28.0-33.3); Mean Platelet Volume 10.9 fL (9.4-12.4); Platelet Count 215 K/mcL (140-400); Red Blood Count 5.09 M/mcL (4.19-5.50); Red Cell Distribution Width 14.6 % (11.5-14.5); White Blood Count 15.9 K/mcL (4.3-11.1)
== END 2019-04-17 12:54 | disposition home health service (06) | DRG 190 ==
LOC: EMEROOARM 22:11 → 2ANU 22:11 → SUATTDRO 04-06 01:02 → 2ANU 04-06 01:20 → SUATTDRO 04-08 14:08 → 2NNU 04-09 10:22 → 2ANU 04-14 15:41
PROVIDERS: ADMIT Pharmacist; ATTEND Internal Medicine